=== PATIENT | male | born 1980 | race Two or more races ===

== ENCOUNTER 2025-01-18 17:43 | Emergency (ER) | payer BC, OTHER ==
[~2025-01-18] VITALS: Ht 167.6 cm; Wt 85.6 kg
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
--- NOTE | 2025-01-18 19:04 | DVH ---
CLINICAL INDICATION: INJURY/PAIN TECHNIQUE: 3 radiographic views of the right shoulder were obtained. Comparison: None FINDINGS/IMPRESSION: There is no evidence of acute fracture or dislocation. The visualized joint space is well maintained. The alignment is anatomical. There is no radiopaque foreign body. HS:Y
[2025-01-18] MEDS ORDERED: METH4PAK PO (19:25)
[2025-01-18] MEDS ORDERED: CYCL-839 PO (19:25)
[2025-01-18] MEDS: HYDROcodone-ACET 10/325MG TAB PO ONE (20:49)
[2025-01-18] MEDS: KETOROLAC TROMETH 60MG/2ML VIAL IM ONE (20:49)
[2025-01-18 21:00] VITALS: BP 138/85; TEMP 98
[2025-01-18 21:06] VITALS: PULSE 85; RESP 16; O2SAT 95
== END 2025-01-18 21:10 | disposition home or self-care (01) ==
LOC: ER 17:43
DX: S46.911A Strain of unspecified muscle, fascia and tendon at shoulder and upper arm level, right arm, initial encounter (principal); Z79.899 Other long term (current) drug therapy; V87.8XXA Person injured in other specified noncollision transport accidents involving motor vehicle (traffic), initial encounter; Y93.89 Activity, other specified; Y92.89 Other specified places as the place of occurrence of the external cause; Y99.8 Other external cause status
CPT/HCPCS: 73030; 96372; 99283; J1885